=== PATIENT | male | born 1970 ===

== ENCOUNTER 2020-11-06 13:47 | Emergency (ER) | payer BC ==
[~2020-11-06] VITALS: Ht 185.4 cm; Wt 124.7 kg
[2020-11-06] MEDS ORDERED: Spironolactone25 MG (14:55)
== END 2020-11-06 15:40 | disposition home or self-care (01) ==
LOC: ER 13:47
DX: U07.1 COVID-19 (principal); Z79.899 Other long term (current) drug therapy
CPT/HCPCS: 36415; 99283

== ENCOUNTER 2021-12-26 08:29 | Day surgery (SDC) | payer BC ==
[~2021-12-26] VITALS: Ht 182.9 cm; Wt 129.8 kg
[~2021-12-26 08:29] MED LIST: Spironolactone25 MG
[2021-12-26] MEDS ORDERED: CHLO25B (08:54)
[2021-12-26] MEDS ORDERED: LISI20 (08:54)
[2021-12-26] MEDS ORDERED: OMEP20ER (08:54)
== END 2021-12-26 10:34 | disposition home or self-care (01) ==
LOC: ORSCSDS 08:29
PROVIDERS: Surgery
PROC: 0DBL8ZX Excision of Transverse Colon, Via Natural or Artificial Opening Endoscopic, Diagnostic (ICD-10-PCS; principal; 2021-12-26 09:45)
DX: R19.5 Other fecal abnormalities (principal); D12.3 Benign neoplasm of transverse colon; E78.5 Hyperlipidemia, unspecified; I12.9 Hypertensive chronic kidney disease with stage 1 through stage 4 chronic kidney disease, or unspecified chronic kidney disease; E09.22 Drug or chemical induced diabetes mellitus with diabetic chronic kidney disease; N18.9 Chronic kidney disease, unspecified; Z86.16 Personal history of COVID-19; E66.9 Obesity, unspecified; Z68.39 Body mass index [BMI] 39.0-39.9, adult; Z79.899 Other long term (current) drug therapy
CPT/HCPCS: 82947; 88305; J2704; J7120

== ENCOUNTER → 2022-02-27 | Outpatient (CLI) | payer BC ==
[~2022-02-27] MED LIST changes: +CHLO25B; +LISI20; +OMEP20ER
== END ==
LOC: LAB SHORT 15:38 → LAB 15:38
DX: J02.9 Acute pharyngitis, unspecified (principal); R50.9 Fever, unspecified
CPT/HCPCS: 87081; 87147